=== PATIENT | male | born 1965 | race Caucasian/White ===

== ENCOUNTER → 2017-06-30 | Outpatient (CLI) | payer SELFPAY ==
--- NOTE | 2017-07-03 08:25 | USB ---
Reason for exam: clinical finding. Indicated problem(s): lump or thickening in the left breast. Physical Findings: Nurse Summary: left breast 12 o'clock palpable, 2 x 1cm, movable, non-tender (nurse ts). US Breast BILAT Right breast ultrasound a 1.8 x 0.6 x 1.6cm irregular, solid, hypoechoic lesion at the posterior nipple. Left breast ultrasound demonstrates a 1.7 x 2.1 x 0.6cm irregular, solid, hypoechoic lesion at the posterior nipple. Relatively symmetrical on both sides. Gynecomastia can be confirmed with mammogram. These results were verbally communicated with the patient and result sheet given to the patient on 06/30/17. ASSESSMENT: Incomplete: need additional imaging evaluation, BI-RAD 0 RECOMMENDATION: Special view mammogram of both breasts.
--- NOTE | 2017-07-03 08:30 | MM ---
Reason for exam: additional evaluation requested from abnormal screening. [facility] Mammo w CAD DEVI Bilateral CC and MLO view(s) were taken. There are scattered fibroglandular densities. There is symmetrical mild bilateral gynecomastia. Some intramammary lymph nodes are noted along the upper outer quadrants on both sides. Otherwise, no discrete abnormality is seen. These results were verbally communicated with the patient and result sheet given to the patient on 06/30/17. ASSESSMENT: Benign, BI-RAD 2 RECOMMENDATION: Clinical management of both breasts. Manage on a clinical basis with regard to mild benign bilateral gynecomastia.
== END ==
LOC: RADUSWWP 15:35
PROVIDERS: ATTEND Internal Medicine
DX: R92.8 Other abnormal and inconclusive findings on diagnostic imaging of breast (principal); N62 Hypertrophy of breast
CPT/HCPCS: 76641; G0204

== ENCOUNTER → 2018-11-29 | Outpatient (CLI) | payer BC ==
--- NOTE | 2018-11-29 15:40 | XR ---
EXAMINATION TYPE: XR chest 2V DATE OF EXAM: 11/29/2018 COMPARISON: Prior chest x-ray 09/05/2011 HISTORY: Bronchospasm, cough and shortness of breath TECHNIQUE: Frontal and lateral views of the chest are obtained. FINDINGS: There is no focal air space opacity, pleural effusion, or pneumothorax seen. The cardiac silhouette size is within normal limits. The osseous structures are intact. There is bronchial wall thickening. IMPRESSION: Correlate for bronchitis, reactive airways disease
== END | disposition home or self-care (01) ==
LOC: RADXRYALE 13:10
PROVIDERS: ATTEND Internal Medicine
DX: J20.9 Acute bronchitis, unspecified (principal)
CPT/HCPCS: 71046

== ENCOUNTER → 2019-06-28 | Outpatient (CLI) | payer BC ==
--- NOTE | 2019-06-28 14:15 | XR ---
EXAMINATION TYPE: XR chest 2V DATE OF EXAM: 06/28/2019 COMPARISON: Prior chest x-ray 11/29/2018 HISTORY: Bronchospasm and cough TECHNIQUE: Frontal and lateral views of the chest are obtained. FINDINGS: There is no focal air space opacity, pleural effusion, or pneumothorax seen. The cardiac silhouette size is within normal limits. The osseous structures are intact. IMPRESSION: No acute cardiopulmonary process.
== END | disposition home or self-care (01) ==
LOC: RADXRYALE 12:50
PROVIDERS: ATTEND Internal Medicine
DX: J20.9 Acute bronchitis, unspecified (principal)
CPT/HCPCS: 71046

== ENCOUNTER 2020-10-19 09:36 | Day surgery (SDC) | payer BC ==
[2020-10-16 12:49] VITALS: BMI 28.6
[2020-10-19 10:17] VITALS: TEMP 97
[2020-10-19] MEDS ORDERED: LACTATED RINGERS 1,000 ML IV ONE (10:22)
[2020-10-19] MEDS ORDERED: PROPOFOL 10 MG/ML 20 ML VIAL IV ONE (11:20)
[2020-10-19 11:51] VITALS: RESP 16
--- NOTE | 2020-10-19 11:54 | P.PCN ---
Date of Procedure: 10/19/20 Description of Procedure: BRIEF HISTORY: Patient is a 55-year-old male presenting for outpatient colonoscopy for change in bowel habits. He reports multiple loose bowel movements daily described as thickened monitor over 10 per day with associated weight loss. He does report nighttime bowel movements. He previously had colonoscopy in 10/2018 with polyps removed. PROCEDURE PERFORMED: Colonoscopy with biopsy. PREOPERATIVE DIAGNOSIS: Change in bowel habits, last colonoscopy 2018. ESTIMATED BLOOD LOSS: Minimal. IV sedation per Anesthesia. PROCEDURE: After informed consent was obtained, the patient, was brought into the endoscopy unit. IV sedation was administered by Anesthesia under continuous monitoring. Digital rectal examination was normal. Initially the Olympus CF-190 flexible video colonoscope was then inserted in the rectum, gradually advanced into the cecum without any difficulty. Careful examination was performed as the scope was gradually being withdrawn. Ileocecal valve and the appendiceal orifice were visualized and appeared normal. Prep was excellent. Mucosa of the cecum, ascending colon, transverse colon, descending colon, sigmoid colon, and rectum appeared normal, with biopsies taken of the right colon. The terminal ileum also appeared normal with random biopsies taken. Retroflexion was performed in the rectum and no lesions were seen, low-grade internal hemorrhoids. The patient tolerated the procedure well. IMPRESSION: Normal-appearing colon from rectum to cecum in normal-appearing terminal ileum with random biopsies taken of the right and left colon and terminal ileum. Internal hemorrhoids. RECOMMENDATIONS: Findings of this examination were discussed with the patient. Okay to resume diet. Continue current medical management. Follow-up in the GI clinic in the next 1-2 weeks for results of biopsies. Continue screening colonoscopies at regular intervals as previously scheduled.
[2020-10-19 12:07] VITALS: BP 123/82; PULSE 59
== END 2020-10-19 12:31 | disposition home or self-care (01) ==
LOC: ORWHC2ENDO 09:36
PROVIDERS: ATTEND Internal Medicine
DX: R19.4 Change in bowel habit (principal); R63.4 Abnormal weight loss; R19.5 Other fecal abnormalities; K64.8 Other hemorrhoids; Z86.010 Personal history of colon polyps; T78.40XA Allergy, unspecified, initial encounter; Z98.890 Other specified postprocedural states; Z91.09 Other allergy status, other than to drugs and biological substances; Z79.899 Other long term (current) drug therapy; Z79.51 Long term (current) use of inhaled steroids; Z90.89 Acquired absence of other organs; Z68.27 Body mass index [BMI] 27.0-27.9, adult
CPT/HCPCS: 88305; 45380; J2704

== ENCOUNTER → 2020-11-19 | Outpatient (CLI) | payer BC ==
[2020-11-19 21:50] LABS: Basophils # (A) 0.06 X 10*3/uL (0.00-0.10); Basophils % (A) 1.1 %; Eosinophils # (A) 0.61 X 10*3/uL (0.04-0.35); Eosinophils % (A) 11.7 %; HCT 46.3 % (39.6-50.0); HGB 14.9 g/dL (13.0-17.0); Lymphocytes # (A) 1.34 X 10*3/uL (0.90-5.00); Lymphocytes % (A) 25.6 %; MCHC 32.2 g/dL (32.0-37.0); MCV 93.3 fL (80.0-97.0); Mean Platelet Volume 13.4 fL (9.5-12.2); Monocytes # (A) 0.64 X 10*3/uL (0.20-1.00); Monocytes % (A) 12.2 %; Neutrophils # (A) 2.57 X 10*3/uL (1.80-7.70); Neutrophils % (A) 49.2 %; Platelet Count 184 X 10*3/uL (140-440); RBC 4.96 X 10*6/uL (4.40-5.60); RDW 12.7 % (11.5-14.5); WBC 5.23 X 10*3/uL (4.50-10.00)
[2020-11-20 01:03] LABS: Gliadin AB IgA, Deaminated NEGATIVE (NEGATIVE); Gliadin AB IgA, Unit <0.2 U/mL; Gliadin AB IgG, Deaminated NEGATIVE (NEGATIVE)
[2020-11-20 09:05] LABS: African American GFR (CKD) 111.8 (60.0-200.0); Albumin 4.2 g/dL (3.80-4.90); Albumin/Globulin Ratio 1.45 (1.60-3.17); Anion Gap 11.2 mmol/L (4.00-12.00); BUN/Creat Ratio 17.78 Ratio (12.00-20.00); Calcium 9.2 mg/dL (8.7-10.3); Carbon Dioxide 22.8 mmol/L (21.6-31.8); Globulin 2.9 g/dL (1.6-3.3); Non-African American GFR(CKD) 96.5 (60.0-200.0); Potassium 4.8 mmol/L (3.5-5.5); Total Bilirubin 0.4 mg/dL (0.2-1.2); Total Protein 7.1 g/dL (6.2-8.2)
== END | disposition home or self-care (01) ==
LOC: LABWHC1 10:36
PROVIDERS: ATTEND Nurse Practitioner
DX: R19.4 Change in bowel habit (principal); R63.4 Abnormal weight loss
CPT/HCPCS: 36415; 80053; 83516; 85025; 87045; 87046; 87338

== ENCOUNTER → 2020-11-19 | Outpatient (CLI) | payer BC ==
--- NOTE | 2020-11-20 08:01 | CT ---
EXAMINATION TYPE: CT ChestAbdPelvis w con DATE OF EXAM: 11/19/2020 COMPARISON: None. HISTORY: Abnormal weight loss, loose stools, hx of covid CT DLP: 1066.3 mGycm. Automated Exposure Control for Dose Reduction was Utilized. CONTRAST: CT scan of the thorax, abdomen and pelvis is performed with IV Contrast, patient injected with 100 mL of Isovue 300. FINDINGS: LUNGS: Subpleural region medially right lower lobe there is a 10 x 8 mm low dense nodule axial image 38. Mild atelectatic change in both bases. No pleural effusion or pneumothorax. No suspicious focal c onsolidation. MEDIASTINUM: There are multiple abnormal low dense enlarged bilateral hilar lymph node. For referen ce there is 1.5 x 1.2 cm lymph node axial image 27. Additional enlarged fairly low-density mediastina l lymph nodes, for reference and 1.9 x 1.3 cm pericarinal lymph node axial image 23. Abnormal enlarge d subcarinal lymph node image 27. No cardiomegaly or pericardial effusion is seen. LIVER/GALLBLADDER: Distended margins to gallbladder. No surrounding inflammatory change. Liver somewh at low dense suggesting diffuse fatty infiltration. PANCREAS: No significant abnormality is seen. SPLEEN: Small splenule anterior to spleen axial image 51. ADRENALS: No significant abnormality is seen. KIDNEYS: Symmetric cortical medullary uptake and excretion without hydronephrosis seen bilaterally.. BOWEL: Normal-appearing appendix from base of cecum in the right pelvis. Slightly prominent fluid-andrew led small bowel loops in the right lower quadrant. There are small bowel feces sign. No greater than 3.0 cm dilatation. Oral contrast only reaches mid small bowel loops making evaluation distal bowel sl ightly suboptimal. Mild to moderate wall thickening with poor distention; at the level of the splenic flexure. Mild to moderate wall thickening involving sigmoid rectal colon. GENITAL ORGANS: Prostate gland upper limits of normal in size. Single prominent right-sided phlebolit h axial image 110. LYMPH NODES: No greater than 1cm abdominal or pelvic lymph nodes are appreciated. OSSEOUS STRUCTURES: Mild facet arthropathy lower lumbar levels. OTHER: Small fat-containing right inguinal hernia. Small degree of bilateral flame-shaped subareolar gynecomastia axial image 29. IMPRESSION: 1. Low density 10 x 8 mm right lower lobe subpleural nodule with enlarged thoracic adenopathy, favor inflammatory or granulomatous process over neoplasm, the latter cannot be excluded. Consider PET/CT f ollow-up to further evaluate. 2. Overall nonspecific bowel gas pattern. Suspect delayed passage of ingested material to colonic lev el. A developing mild partial distal small bowel obstruction not entirely excluded. Areas of mild to moderate wall thickening near splenic flexure and sigmoid rectal colon could reflect product of uncom plicated acute colitis, neoplasm not entirely excluded, colonoscopy evaluation advised if patient has not had in last 3 years.
== END ==
LOC: RADCTMAIN 15:54
PROVIDERS: ATTEND Internal Medicine Gastroenterology
DX: R63.4 Abnormal weight loss (principal)
CPT/HCPCS: 71260; 74177; Q9967

== ENCOUNTER → 2020-12-02 | Outpatient (CLI) | payer BC ==
--- NOTE | 2020-12-02 14:17 | FL ---
EXAMINATION TYPE: FL UGI air w small bowel DATE OF EXAM: 12/02/2020 COMPARISON: CT November 19, 2020 HISTORY: History of covid infection several months ago with abnormal weight loss, loose stools for [address] TECHNIQUE: A double contrast UGI study is performed with small bowel follow through. A total of 1 mi nute 45 seconds of fluoroscopic time utilized. 47 images saved to PACS. FINDINGS: Acting Manager image of the abdomen shows no gross abnormality. During rapid drinking patient has transient deep penetration which clears without coughing. The esoph karoline shows satisfactory motility and emptying into the stomach. No diverticulum. No evidence of fixed hiatal hernia or stricture noted. The stomach shows less than optimal distention with mild diffuse gastric fold prominence. No focal u lcer disease. Moderate gastroesophageal reflux with several episodes into distal one half of esophagu s noted during real-time scanning. The duodenal bulb and sweep are within normal limits. The small bowel study shows persistent thumb delayed transit to the colon occurring just under 195 mi nutes. The terminal ileum is well identified and appears within normal limits on this study. There a re persistent prominent but not abnormally dilated distal small bowel loops in the pelvis and right l ower quadrant. No distinct transition point identified. Jejunal loops left abdomen show no suspicious dilatation and normal mucosal folds. Some small bowel feces sign is felt to still remain present. IMPRESSION: Mild diffuse gastritis. Moderate gastroesophageal reflux. Persistent delayed passage of ingested material to colonic level. No bowel obstruction overall. No suspicious mass. On review of patient's recent CT there is possible abnormal right axillary lymph node axial image 15. Also when talking with patient recurrent episodes of watery frequent diarrhea raise concern for poss ible pancreatic neuroendocrine lesion, cannot entirely exclude isoechoic lesion along the right later al margin of the pancreatic head on coronal image 32, consider further investigation with endoscopic ultrasound, or dynamic pancreatic protocol contrast-enhanced CT or MRI to further evaluate.
== END ==
LOC: RADFLMAIN 08:42
PROVIDERS: ATTEND Internal Medicine Gastroenterology
DX: K29.70 Gastritis, unspecified, without bleeding (principal); K21.9 Gastro-esophageal reflux disease without esophagitis
CPT/HCPCS: 74240; 74248

== ENCOUNTER → 2020-12-03 | Outpatient (CLI) | payer BC ==
--- NOTE | 2020-12-04 08:55 | MR ---
EXAMINATION TYPE: MR pancreas wo/w con DATE OF EXAM: 12/03/2020 COMPARISON: Correlation CT 11/19/2020 HISTORY: 55-year-old male R93.5, Loose bowel movement. Abnormal findings on diagnostic imaging. Technique: Multiplanar, multisequence images of the abdomen were obtained before and after administra tion of 8.5 mL intravenous Gadavist gadolinium contrast. FINDINGS: The liver is mildly enlarged at 18.7 cm. No significant loss of signal in the liver on out of phase T 1-weighted sequence to suggest fatty infiltration. Portal venous system is patent. No biliary ductal dilatation. Gallbladder, kidneys, adrenal glands, and spleen with small anterior splenules within normal limits. With attention to the pancreas, the 1.9 x 1.4 cm soft tissue nodule along the right lateral margin of the pancreatic head (postcontrast axial tpi5 image 250 and coronal postcontrast image 33) has simila r signal intensity compared to the rest of the pancreas on both T2, T1, postcontrast images, and DWI. No abdominal lymphadenopathy, ascites fluid, or gross bowel abnormality is seen. Moderate stool burde n. IMPRESSION: 1. Mild hepatomegaly at 18.7 cm. No evidence for any significant fatty infiltration of the liver. 2. The 1.9 x 1.4 cm soft tissue nodule along the right lateral margin of the pancreatic head has sign al and enhancement characteristics which mirror that of the remainder of the pancreatic parenchyma. T his suggests a prominent lobule of pancreatic tissue rather than a mass. Recommend 6 month follow-up CT as a precautionary measure to document stability of this region. 3. Moderate stool burden.
== END ==
LOC: RADMRIMAIN 13:11
PROVIDERS: ATTEND Nurse Practitioner
DX: R16.0 Hepatomegaly, not elsewhere classified (principal)
CPT/HCPCS: 74183; A9585

== ENCOUNTER → 2022-01-28 | Outpatient (CLI) | payer BC ==
--- NOTE | 2022-01-28 10:21 | CT ---
EXAMINATION TYPE: CT chest w con DATE OF EXAM: 01/28/2022 COMPARISON: 11/19/2020 HISTORY: Enlarged Lymph nodes CT DLP: 397.4 mGycm Automated exposure control for dose reduction was used. TECHNIQUE: CT scan of the chest is performed with IV Contrast, patient injected with 100 mL of Isovue 300. MIP Images are created on CT scanner and reviewed. 3D reconstructed images are created on an independent workstation and reviewed. FINDINGS: LUNGS: The lungs are grossly clear, there is no concerning parenchymal mass or nodule identified. T here is no pleural effusion or pneumothorax seen. The tracheobronchial tree is patent. MEDIASTINUM: There are no greater than 1 cm hilar or mediastinal lymph nodes. No pericardial effusi on is seen. OTHER: There are low in attenuation. Hypertrophic degenerative changes spine. IMPRESSION: 1. No evidence of pathologic lymphadenopathy. Previously noted right lower lobe subpleural nodule not seen on today's exam. 2. Correlate steatosis
== END | disposition home or self-care (01) ==
LOC: RADCTMAIN 08:57
PROVIDERS: ATTEND Internal Medicine Sleep Medicine
DX: R59.9 Enlarged lymph nodes, unspecified (principal)
CPT/HCPCS: 71260; Q9967

== ENCOUNTER → 2024-09-12 | Outpatient (CLI) | payer BC | END | disposition home or self-care (01) | LOC: LABWHC1 08:00 | PROVIDERS: ATTEND Urology | DX: R35.0 Frequency of micturition (principal) | CPT/HCPCS: 36415; 84153 ==